=== PATIENT | male | born 1985 | race Caucasian/White ===

== ENCOUNTER 2016-10-17 16:48 | Emergency (ER) | payer OTHER ==
[2016-11-11] MEDS ORDERED: NORCO 5-325 TA1 EACH PO (11:22)
== END 2016-10-17 18:00 | disposition home or self-care (01) ==
LOC: ER1 16:48
DX: L72.3 Sebaceous cyst (principal); Z88.0 Allergy status to penicillin; Z88.5 Allergy status to narcotic agent
CPT/HCPCS: 99282

== ENCOUNTER → 2016-11-11 | Day surgery (SDC) | payer OTHER ==
[~2016-11-11] MED LIST: NORCO 5-325 TA1 EACH PO
== END | disposition home or self-care (01) ==
LOC: OR 06:03
PROVIDERS: Surgery
PROC: 0HB5XZZ Excision of Chest Skin, External Approach (ICD-10-PCS; principal; 2016-11-11 07:30)
DX: L72.11 Pilar cyst (principal); Z88.0 Allergy status to penicillin; Z88.8 Allergy status to other drugs, medicaments and biological substances
CPT/HCPCS: J0690; J1885; J2250; J2795; J3010; J7030; J7120